=== PATIENT | male | born 2000 | race Caucasian/White ===

== ENCOUNTER 2019-06-16 22:36 | Emergency (ER) | payer BC ==
[~2019-06-16] VITALS: Ht 177.8 cm; Wt 72.6 kg
[2019-06-16 22:42] VITALS: BP 123/75; Ht 177.8 cm; Wt 72.6 kg
== END 2019-06-17 05:22 | disposition home or self-care (01) ==
LOC: ED 22:36
DX: J11.1 Influenza due to unidentified influenza virus with other respiratory manifestations (principal); R41.0 Disorientation, unspecified; R11.2 Nausea with vomiting, unspecified
CPT/HCPCS: 87804; J1885; J2405